=== PATIENT | female | born 1990 | race Caucasian/White ===

== ENCOUNTER 2018-01-15 18:35 | Emergency (ER) | payer OTHER ==
[2018-01-15] MEDS ORDERED: NS 1,000 ML IV ONE (18:43)
--- NOTE | 2018-01-15 19:00 | EDPHY ---
H & P Time Seen by Provider: 01/15/18 18:44 HPI/ROS: HPI Abdominal pain. 27-year-old female by private vehicle with her boyfriend. They come from an urgent care where she was evaluated for left lower quadrant abdominal pain since 10:00 a.m. This morning. She has taken some ibuprofen but has had no relief. Pain is described as cramping and sharp. No associated fever. She had some blood in her urine apparently at the urgent care. She states that her last menstrual period ended on December 29. She has had no associated nausea, vomiting or diarrhea. She had a normal bowel movement this morning. No bloody or melenic stool. No diarrhea. She denies any urinary complaints. She does have a prior history of kidney stones. She does not have any flank pain. ROS: Constitutional: No fever, no chills. No weakness. Eyes: No discharge. No changes in vision. ENT: No sore throat. No nasal congestion or rhinorrhea. Respiratory: No cough. No shortness of breath. Cardiac: No chest pain, no palpitations. Gastrointestinal: As above, no vomiting, no diarrhea. Genitourinary: No hematuria. No dysuria or increased frequency with urination. Musculoskeletal: No back pain. No neck pain. No myalgias or arthralgias. Skin: No rashes. Neurological: No headache. No focal weakness or altered sensation. Past medical history: Kidney stones. Social history: Here with her boyfriend. Nonsmoker. No alcohol. Physical Exam: General Appearance: Alert, no distress. This patient is responding to questions appropriately and in full sentences. This patient appears well- hydrated and well-nourished. Eyes: Pupils equal and round no pallor or injection. No lid edema, erythema or injection. Respiratory: There are no retractions, lungs are clear to auscultation with good air movement bilaterally. Cardiovascular: Regular rate and rhythm. No murmur. Gastrointestinal: Abdomen is soft with mild to moderate left adnexal tenderness on palpation, no masses, bowel sounds normal. No focal tenderness at McBurney's point. No Valenzuela sign. Neurological: Motor sensory function is grossly intact. Cranial nerves are normal. Gait is normal. Skin: Warm and dry, no rashes. Musculoskeletal: No flank/CVA tenderness on palpation. Extremities are symmetrical. All joints range without pain or impingement. Psychiatric: No agitation. No depression. Database: EKG: Imaging: Retroperitoneal ultrasound: Significant for mild to moderate left-sided hydronephrosis and based on the point at where this starts, likely a distal ureteral stone. Results were discussed with staff radiologist Dr. Gokul Sutherland. Procedures: Emergency department course: Triage vital signs reviewed and are unremarkable. She is afebrile. IV was placed. She will be started on IV normal saline with 1 L to be given over the next hour. Ultrasound imaging will be obtained initially. She is not in distress. She is declining pain medications. Her presentation is more consistent with a left ovarian cyst. If ultrasound is inconclusive will consider CT imaging to assess for possible kidney stone. 7:25 p.m., the patient does have a normal creatinine. No contraindications to NSAIDs. She was given 30 mg of IV Toradol for pain. 8:20 p.m., I re-evaluated the patient. She just had her retroperitoneal ultrasound. Findings as noted above consistent with ureterolithiasis. I do not feel that the pelvic ultrasound is indicated at this time. This will be canceled. The patient is in agreement with this. I discussed CT imaging with the patient and the pros and cons for this study. She declines this study. We will treat her as a kidney stone. Her last kidney stone in 2011 was 2 mm. She was given 0.4 mg of oral Flomax. She will be discharged to home with a prescription for Zofran, Flomax, Vicodin and she will resume taking ibuprofen tomorrow morning. She has been instructed to return to the emergency department for worsening pain, fever, vomiting or other serious concerns. I discussed urology follow-up with her. All of her questions were answered. She was discharged from the emergency department in good condition with her boyfriend who is driving. Differential Diagnosis: The differential diagnosis on this patient includes but is not limited to ovarian cysts, left ureteral stone. Diverticulitis, ectopic , appendicitis, colitis, tubo-ovarian abscess unlikely. This represents a partial list of diagnoses considered. These considerations are based on history , physical exam, past history, reassessment and diagnostic testing. Smoking Status: Never smoked Constitutional: Initial Vital Signs Temperature (C) 37.2 C 01/15/18 18:41 Heart Rate 82 01/15/18 18:41 Respiratory Rate 16 01/15/18 18:41 Blood Pressure 135/92 H 01/15/18 18:41 O2 Sat (%) 95 01/15/18 18:41 O2 Delivery Mode Room Air Allergies/Adverse Reactions: No Known Allergies Allergy (Verified 01/15/18 18:40) Home Medications: Medication Instructions Recorded Hydrocodone/APAP 5/325 [[place] 1 - 2 tab PO Q4-6PRN PRN #14 tab 01/15/18 5/325 (*)] Obcp 01/15/18 Ondansetron Odt [Zofran Odt 4 mg 4 mg PO Q4PRN PRN #10 tab 01/15/18 (*)] Tamsulosin HCl [Flomax 0.4 MG (*)] 0.4 mg PO DAILY #4 cap 01/15/18 oxyCODONE/APAP 5/325 [Percocet 1 - 2 tab PO Q4-6PRN PRN #12 tab 01/15/18 5/325 (*)] Medical Decision Making - Data Points Laboratory Results: 01/15/18 19:01 POC Sodium 140 mEq/L mEq/L (135-145) POC Potassium 3.2 mEq/L L mEq/L (3.3-5.0) POC Chloride 105.0 mEq/L mEq/L (97-110) POC Total CO2 22 mEq/L mEq/L (22-31) POC BUN 12 mg/dL mg/dL (7-23) POC Creatinine 1.0 mg/dL mg/dL (0.6-1.0) POC Glucose 107 mg/dL H mg/dL (70-100) POC Calcium 9.1 mg/dL mg/dL (8.5-10.4) Medications Given: Discontinued Medications Sodium Chloride (Ns) 1,000 mls @ 0 mls/hr IV EDNOW ONE; Wide Open PRN Reason: Protocol Stop: 01/15/18 18:44 Last Admin: 01/15/18 19:04 Dose: 1,000 mls Ketorolac Tromethamine (Toradol) 30 mg IVP EDNOW ONE Stop: 01/15/18 19:23 Last Admin: 01/15/18 19:23 Dose: 30 mg Point of Care Test Results: Chemistry 01/15/18 19:01 POC Sodium 140 mEq/L mEq/L (135-145) POC Potassium 3.2 mEq/L L mEq/L (3.3-5.0) POC Chloride 105.0 mEq/L mEq/L (97-110) POC Total CO2 22 mEq/L mEq/L (22-31) POC BUN 12 mg/dL mg/dL (7-23) POC Creatinine 1.0 mg/dL mg/dL (0.6-1.0) POC Glucose 107 mg/dL H mg/dL (70-100) POC Calcium 9.1 mg/dL mg/dL (8.5-10.4) Urine Collection Date 01/15/18 Collection Time 18:50 HCG Results Negative Urine Dip Collection Date 01/15/18 Collection Time 18:50 Specific [place] (1.002-1.030) 1.030 PH (5.0-7.5) 6.0 Leukocytes (Negative) Negative Nitrites (Negative) Negative Protein (Negative) 1+ Glucose (Negative) Negative Ketones (Negative) Negative Urobilnogen (0.2-1.0 EU) 0.2 Bilirubin (Negative) Negative Blood (Negative) 1+ Departure - Departure Disposition: Home, Routine, Self-Care Clinical Impression: Abdominal pain, left lower quadrant, Renal colic on left side Condition: Good Instructions: Kidney Stones (ED) Additional Instructions: Read and follow provided instructions. Follow-up with Urology, as discussed this week for re-evaluation. Call their office in the morning at 9:00 a.m. For appointment time. Explained this is for an emergency department follow-up. Take medication as prescribed. You can resume taking ibuprofen tomorrow morning. Ibuprofen dosin mg every 6 hours with meals for the next 3 days only. Take only as needed for pain. Return to the emergency department for worsening pain, pain persisting greater than 24 hr, fever, vomiting or other serious concerns. Referrals: Paige Magana MD [Medical Doctor] - As per Instructions Prescriptions: Hydrocodone/APAP 5/325 [[place] 5/325 (*)] 1 - 2 tab PO Q4-6PRN PRN #14 tab PRN Reason: Pain, Moderate Ondansetron Odt [Zofran Odt 4 mg (*)] 4 mg PO Q4PRN PRN #10 tab PRN Reason: For Nausea & Vomiting oxyCODONE/APAP 5/325 [Percocet 5/325 (*)] 1 - 2 tab PO Q4-6PRN PRN #12 tab PRN Reason: For Moderate To Severe Pain Tamsulosin HCl [Flomax 0.4 MG (*)] 0.4 mg PO DAILY #4 cap
[2018-01-15] MEDS ORDERED: KETOROLAC 30 MG/1 ML SDV ONE (19:17)
[2018-01-15] MEDS ORDERED: KETOROLAC 30 MG/1 ML SDV IVP ONE (19:22)
[2018-01-15] MEDS ORDERED: TAMSULOSIN HCL 0.4 MG CAP PO ONE (20:25)
[2018-01-15] MEDS ORDERED: ONDANSETRON 4MG PREPACK#2 BTL TAKEHOME ONE (20:35)
[2018-01-15] MEDS ORDERED: HYDROCOD/APAP 5/325 PREPACK#6 BTL TAKEHOME ONE (20:36)
[2018-01-15 21:05] VITALS: BP 116/79
== END 2018-01-15 21:05 | disposition home or self-care (01) ==
LOC: CED 18:35
DX: N20.0 Calculus of kidney (principal); E86.9 Volume depletion, unspecified
CPT/HCPCS: 76770-PO; 80048-PO; 96374; J1885